=== PATIENT | female | born 1965 | race American Indian/Alaskan Native ===

== ENCOUNTER 2018-11-29 13:22 | Emergency (ER) | payer MEDICAID ==
[2018-11-29 14:55] VITALS: BP 145/94
--- NOTE | 2018-11-29 14:55 | Emergency Department Report ---
Chief Complaint: Extremity Injury, Lower Stated Complaint: GOUT (FOOT) Time Seen by Provider: 11/29/18 14:51 - HPI History of Present Illness: Pt c/o left foot pain that began a week ago with edema hx of gout, states she is taking colchicine currently no fever no N/V/D no fall, injury, or trauma no wound on the foot pt believes it is related to her gout PMHx of DM, HTN, GERD, pinched nerve in the lumbar non smoker occ drinker no drug use PCP Dr. Mensah MSE screening note: Focused history and physical exam performed. Due to findings the following was ordered: XR foot left ED Disposition for MSE Condition: Stable
--- NOTE | 2018-11-29 15:18 | XRay Report ---
LEFT FOOT, 2 views: History: Left foot pain. The bony architecture is intact. Bony alignment is normal. No soft tissue abnormalities are seen. The joint spaces appear preserved. A moderate to large plantar spur is identified measuring 7 mm. IMPRESSION: Plantar spur.
[2018-11-29] MEDS ORDERED: DECADRON IM ONE (16:54)
[2018-11-29] MEDS ORDERED: SOLU-Medrol IM ONE (16:54)
[2018-11-29] MEDS ORDERED: PERCOCET 5/325 PO ONE (16:54)
--- NOTE | 2018-11-29 16:58 | Emergency Department Report ---
ED Back Pain/Injury HPI - General Chief Complaint: Extremity Injury, Lower Stated Complaint: GOUT (FOOT) Time Seen by Provider: 11/29/18 14:51 Source: patient, EMS Limitations: No Limitations - History of Present Illness Initial Comments: Patient is a 53-year-old female who comes to the ER with a one-week history of gout pain. She states that she couldn't get in to see her primary care with the primary care did call and colchicine for her. Patient states the colchicine is not helping. Patient denies trauma to the foot. She is complaining of foot pain. PMH OBESE DM II LUMBAR PAIN PINCHED NERVE L SHOULDER GERD HTN HPLD ASTHMA RX COLCHICINE PERCOCET MORPHINE SPIRONAL. METFORMIN STATIN NEBS - Related Data Previous Rx's Medication Instructions Recorded Last Taken Type predniSONE [Deltasone] 20 mg PO DAILY #5 tablet 11/29/18 Unknown Rx ED Review of Systems ROS: Stated complaint: GOUT (FOOT) Other details as noted in HPI Comment: All other systems reviewed and negative ED Past Medical Hx - Past Medical History Medical history: arthritis, asthma, diabetes, GERD, hyperlipidemia, hypertension pinched nerve; B KNEE REPLACEMENT Surgical history: other (B KNEE) ED Back Pain Physical Exam - Exam General: Vital signs noted. No distress. Alert and acting appropriately. A/O S1S2 LUNGS CTA ABD OBESE NON TENDER AMBULATORY BUT WITH LIMP DUE TO PAIN NO FALL GREAT TOE PROXIMAL RED AND SWOLLEN RAD TO ANKLE GOOD PULSES RAPID CAP REFILL FULL ROM BUT LIMITED BY PAIN Back/Abdomen: No Abdominal Tenderness, No Perithoracic Tenderness, No Perilumbar Tenderness, No Sacroiliac Tenderness, No Flank Tenderness, No Straight Leg Raise Pain Neuro: Yes Normal Sensation, Yes Normal DTR's, No Motor Weakness, No Normal Gait (LIMITED WITH PAIN) ED Course Vital Signs 11/29/18 14:52 Temperature 98.4 F Pulse Rate 91 H Respiratory 19 Rate Blood Pressure 145/94 [Left] O2 Sat by Pulse 95 Oximetry Ed Back Pain Tests - Tests Tests: Normal X Rays ED Medical Decision Making - Radiology Data Radiology results: report reviewed, image reviewed - Medical Decision Making Vital Signs 11/29/18 14:52 Temperature 98.4 F Pulse Rate 91 H Respiratory 19 Rate Blood Pressure 145/94 [Left] O2 Sat by Pulse 95 Oximetry MEDICATED IN ER DISCUSSED FOLLOWING HER BLOOD SUGAR SINCE NARCS AND COLCHICINE IS NOT HELPING - PREDNISONE IS GOING TO BE NEEDED EDUCATED ABOUT GOUT DC HOME WITH RX AND PCP FOLLOW UP Critical care attestation.: If time is entered above; I have spent that time in minutes in the direct care of this critically ill patient, excluding procedure time. ED Disposition Clinical Impression: Gout, Diabetes, Obese, Chronic pain Disposition: DC-01 TO HOME OR SELFCARE Is pt being admited?: No Does the pt Need Aspirin: No Condition: Stable Instructions: Acute Gouty Arthritis (ED) Additional Instructions: med as ordered today diet as tolerated activity as tolerated hydrate well with water MONITOR YOUR BLOOD SUGAR IT MAY INCREASE DO NOT BE ALARMED FOLLOW UP WITH PCP DIABETIC DIET CONTINUE HOME COLCHICINE, MORPHINE AND PERCOCET Prescriptions: predniSONE [Deltasone] 20 mg PO DAILY #5 tablet Referrals: LEONA BLANCA [Primary Care Provider] - 3-5 Days Time of Disposition: 16:56
== END 2018-11-29 17:25 | disposition home or self-care (01) ==
LOC: ED 13:22
DX: M10.9 Gout, unspecified (principal); E66.9 Obesity, unspecified; G89.29 Other chronic pain; E11.9 Type 2 diabetes mellitus without complications; M19.90 Unspecified osteoarthritis, unspecified site; J45.909 Unspecified asthma, uncomplicated; E78.5 Hyperlipidemia, unspecified; I10 Essential (primary) hypertension; Z96.653 Presence of artificial knee joint, bilateral
CPT/HCPCS: 73620; 96372; 99283; J1100; J2920